=== PATIENT | female | born 1995 | race American Indian/Alaskan Native ===

== ENCOUNTER 2020-03-03 01:54 | Emergency (ER) | payer OTHER ==
[2020-03-03] MEDS ORDERED: ONDANSETRON 4 MG/2 ML INJ IM ONE (02:33)
[2020-03-03] MEDS ORDERED: KETOROLAC 60 MG/2 ML INJ IM ONE (02:33)
[2020-03-03] MEDS ORDERED: fentaNYL 100 MCG/2 ML INJ IM ONE (02:33)
--- NOTE | 2020-03-03 02:39 | Emergency Department Report ---
HPI - General Chief Complaint: Shoulder Injury PUI?: No Time Seen by Provider: 03/03/20 02:27 - HPI HPI: Room 18 The patient is a 24-year-old female present with a chief complaint of right shoulder pain. Patient states 5 days ago she had to do heavy lifting as she was moving into a new home. Patient states the following day after awakening she noticed pain in the right shoulder. Patient states the pain is been worsening o lilia the past few days. The patient states the pain has limited her range of motion. Patient denies any direct trauma. Patient gives her pain a score of 10/10 ED Past Medical Hx - Past Medical History Previous Medical History?: Yes Additional medical history: Graves' disease status post thyroidectomy. colitis and crohn's - Surgical History Past Surgical History?: Yes Additional Surgical History: TOTAL THROIDECTOMY - Family History Family history: no significant - Social History Smoking Status: Current Every Day Smoker (10/14 pack/day) Substance Use Type: None (Denies illicit drug use), Alcohol (Occasional) - Medications Home Medications: Home Medications Medication Instructions Recorded Confirmed Last Taken Type Levothyroxine 125 mg PO DAILY 06/20/16 06/20/16 Unknown History Cyclobenzaprine [Flexeril] 10 mg PO TID PRN #10 tablet 03/03/20 Unknown Rx HYDROcodone/APAP 5-325 [[place] 1 each PO Q6HR PRN #10 tablet 03/03/20 Unknown Rx 5/325] Ibuprofen [Motrin 800 MG tab] 800 mg PO Q8HR PRN #20 tablet 03/03/20 Unknown Rx ED Review of Systems ROS: Stated complaint: RT ARM DISLOCATED Other details as noted in HPI Constitutional: no symptoms reported Respiratory: no symptoms reported Endocrine: no symptoms reported Musculoskeletal: arthralgia Physical Exam - Physical Exam Physical Exam: GENERAL: The patient is well-developed well-nourished female sitting on stretcher favoring right upper extremity. [] HEENT: Normocephalic. Atraumatic. Extraocular motions are intact. Patient has moist mucous membranes. NECK: Supple. Trachea midline CHEST/LUNGS: There is no respiratory distress noted. HEART/CARDIOVASCULAR: Regular. There is no tachycardia. 2+ right radial pulse SKIN: There is no rash. There is no edema. There is no diaphoresis. NEURO: The patient is awake, alert, and oriented. The patient is cooperative. The patient has normal speech MUSCULOSKELETAL: There is limited range of motion of the right shoulder secondary to pain. No obvious deformities ED Medical Decision Making - Radiology Data Radiology results: report reviewed (Right shoulder x-ray), image reviewed (Right shoulder x-ray) interpreted by me: Right shoulder x-ray-no fracture or dislocation Findings [facility] [address] [place] [address] XRay Report Signed Patient: BETTY VILLASEÑOR MR#: [facility]mis [id number] : 1995 Acct:[id number] Age/Sex: 24 / F ADM Date: 03/03/20 Loc: ED Attending Dr: Ordering Physician: NATHANIEL MARISCAL MD Date of Service: 03/03/20 Procedure(s): XR shoulder 2+V RT Accession Number(s): [id number] cc: NATHANIEL MARISCAL MD Fluoro Time In Minutes: Right shoulder 3 views INDICATION: Right shoulder pain and swelling IMPRESSION: No fracture or subluxation of the right shoulder is identified. Signer Name: Darion Dean MD Signed: 03/03/2020 3:11 AM Workstation Name: [id number] Transcribed By: BC Dictated By: Darion Dean MD Electronically Authenticated By: Darion Dean MD Signed Date/Time: 03/03/20310 DD/ 0 TD/TT: - Differential Diagnosis Rotator cuff injury, bursitis, shoulder strain, AC separation Critical care attestation.: If time is entered above; I have spent that time in minutes in the direct care of this critically ill patient, excluding procedure time. ED Disposition Clinical Impression: Right shoulder strain Disposition: DC-01 TO HOME OR SELFCARE Is pt being admited?: No Does the pt Need Aspirin: No Condition: Stable Instructions: Rotator Cuff Injury (ED), Rotator Cuff Tendinitis (ED) Additional Instructions: Return to the emergency department should you develop worsening symptoms, inability to tolerate food or liquids, high fever or any other concerns Prescriptions: Cyclobenzaprine [Flexeril] 10 mg PO TID PRN #10 tablet PRN Reason: Muscle Spasm Ibuprofen [Motrin 800 MG tab] 800 mg PO Q8HR PRN #20 tablet PRN Reason: Pain, Moderate (4-6) HYDROcodone/APAP 5-325 [[place] 5/325] 1 each PO Q6HR PRN #10 tablet PRN Reason: Pain Referrals: JENS LAWSON MD [Staff Physician] - 2-3 Days (Dr. Lawson is an or thopedic surgeon. Please follow-up with him for further evaluation) Time of Disposition: 03:21
--- NOTE | 2020-03-03 03:15 | XRay Report ---
Right shoulder 3 views INDICATION: Right shoulder pain and swelling IMPRESSION: No fracture or subluxation of the right shoulder is identified. Signer Name: Darion Dean MD Signed: 03/03/2020 3:11 AM Workstation Name: [id number]
== END 2020-03-03 03:39 | disposition home or self-care (01) ==
LOC: ED 01:54
DX: S46.811A Strain of other muscles, fascia and tendons at shoulder and upper arm level, right arm, initial encounter (principal); F17.200 Nicotine dependence, unspecified, uncomplicated; Z98.890 Other specified postprocedural states; Z79.899 Other long term (current) drug therapy; Z91.013 Allergy to seafood; X50.0XXA Overexertion from strenuous movement or load, initial encounter; Y93.89 Activity, other specified; Y92.89 Other specified places as the place of occurrence of the external cause; Y99.8 Other external cause status
CPT/HCPCS: 73030; 96372; 99284; J1885; J2405; J3010